=== PATIENT | male | born 1945 | race Two or more races ===

== ENCOUNTER 2018-02-15 08:25 | Outpatient (CLI) | payer OTHER | END 2018-02-15 08:30 | disposition home or self-care (01) | LOC: SONOGRAMA 08:25 | DX: R10.13 Epigastric pain (principal) ==

== ENCOUNTER 2018-04-22 10:58 | Outpatient (CLI) | payer OTHER | END 2018-04-22 13:38 | disposition home or self-care (01) | LOC: MRI 10:58 | DX: M25.511 Pain in right shoulder (principal); M54.2 Cervicalgia | CPT/HCPCS: 72141 ==